=== PATIENT | female | born 1960 | race Caucasian/White ===

== ENCOUNTER 2017-07-27 13:05 | Emergency (ER) | payer SELFPAY ==
[2017-07-27 14:07] LABS: #Basophils 0.1 thou/uL (0.0-0.2); #Eosinphils 0.2 thou/uL (0.0-0.7); #Lymphocytes 2.9 thou/uL (1.20-3.40); #Monocytes 0.6 thou/uL (0.11-0.59); #Neutrophils 4.6 thou/uL (1.40-6.50); %Basophils 1.5 % (0.0-1.0); %Eosinophils 2.5 % (0.0-10.0); %Lymphocytes 34.2 % (21.0-51.0); %Monocytes 7.3 % (0.0-10.0); Hematocrit 41.8 % (36.0-47.0); Mean Platelet Volume 7.1 fL (7.4-10.4); Red Blood Cell (RBC) Count 4.49 mill/uL (4.20-5.40); White Blood Cell (WBC) Count 8.4 thou/uL (4.8-10.8)
[2017-07-27 14:13] LABS: ALT (SGPT) 11 U/L (8-55); AST (SGOT) 19 U/L (5-34); Alkaline Phosphatase 126 U/L (40-150); Anion Gap 16 mmol/L (10-20); BUN (Urea Nitrogen) 10 mg/dL (9.8-20.1); Bilirubin, Total 0.3 mg/dL (0.2-1.2); Calc. Creatinine Clearance 0 mL/min (70-130); Calcium 9.7 mg/dL (7.8-10.44); Carbon Dioxide 28 mmol/L (22-29); Chloride 101 mmol/L (98-107); Estimated GFR-MDRD 80; Globulin 3.6 g/dL (2.4-3.5); Protein, Total 8.2 g/dL (6.0-8.3)
[2017-07-27 14:19] LABS: Troponin I Less than 0.010 ng/mL (< 0.028)
--- NOTE | 2017-07-27 14:45 | RAD ---
PORTABLE AP CHEST: Date: 07-27-17 History: Shortness of breath, nausea, dyspnea. FINDINGS: Cardiac silhouette and pulmonary vasculature are within normal limits. Lungs are clear. Osseous stru ctures are intact. IMPRESSION: No acute cardiopulmonary process. POS: [facility]
--- NOTE | 2017-09-17 14:32 | EKG ---
Test Reason : Blood Pressure : / mmHG Vent. Rate : 074 BPM Atrial Rate : 074 BPM P-R Int : 144 ms QRS Dur : 082 ms QT Int : 386 ms P-R-T Axes : 072 029 058 degrees QTc Int : 428 ms Normal sinus rhythm Possible Left atrial enlargement No STEMI Borderline ECG Confirmed by IRENE VARGAS, AMINTA ([id number]), film editor supervisor MILTON JACKSON ([id number]) on 09/17/2017 2:32:32 PM Referred By: Confirmed By:AMINTA BONILLA MD
== END 2017-07-27 16:57 | disposition home or self-care (01) ==
LOC: ERS 13:05
DX: J45.909 Unspecified asthma, uncomplicated (principal); E03.9 Hypothyroidism, unspecified; F32.9 Major depressive disorder, single episode, unspecified
CPT/HCPCS: 36415; 71010; 80053; 82553; 84484; 85025; 93005; 94799